=== PATIENT | female | born 1980 | race Caucasian/White ===

== ENCOUNTER 2025-05-24 23:21 | Inpatient (IN) ==
--- NOTE | 2025-05-24 23:34 | Emergency Department Note ---
Impression & Plan Free fluid in pelvis, Cecum perforation ED Provider Note Name: JIGNESH VAZ Age: 44 Sex: Female Arrives Via: Walk-In Informant: Patient ED Provider: Ivan Ware MD Chief Complaint: Abdominal pain Impression: As per impressions above Medical Decision Making: Pleasant 44-year-old female arrives for evaluation of right lower quadrant abdominal pain. Patient is significant tenderness palpation over the right lower quadrant without overt peritonitis. She is hemodynamically stable. Laboratory workup reveals a mildly elevated white blood cell count. CT of the ab pelvis IV contrast reveals loculated fluid collections posterior to right colon/cecum. Discussed with on-call GEN surge team who evaluated patient and feel proceeding with oral contrast CT indicated. A repeat CT was obtained. There is no clear evidence of appendicitis at this point. There continues to be inflammation in the area. Given the free fluid and concern for abscesses patient clearly require hospitalization. Unclear what the etiology of all this is as there is no clear evidence of appendicitis. She was given some IV Mefoxin along with IV fluids. Hospitalist was consulted and general surgery team will follow along. Triage/Nursing Notes reviewed by Me Differential:Appendicitis, ovarian torsion, diverticulitis, ischemia, obstruction, renal colic, pyelonephritis, inflammatory bowel disease amongst many other pathologies considered Vital Signs: reviewed and remarkable for no significant abnormalities Interventions: Cefoxitin 2 g IV, Tylenol IV, normal saline bolus Labs:ED labs Reviewed by me and remarkable for no significant abnormalities Imaging:CT imaging as per radiologist. Abdomen and pelvis with IV contrast and then with p.o. contrast. Inflammatory changes throughout the cecum and loculated fluid collections posteriorly to the cecum with free fluid throughout the area as well as in the pelvis. See their read for full. Consults:Discussed with Mireya of general surgical service who evaluated the patient and agrees does not require emergent or at this time. Suggested proceeding with the oral contrast CT. With these findings admit to hospitalist given no clear surgical indication at this point and will need further workup for what is actually going on. Discussed with hospital service who will further evaluate and manage. Plan: Disposition:Hospitalization. Condition: Good History of Present Illness: 44-year-old female arrives for evaluation of abdominal pain. Patient has been having some nonspecific abdominal pain for the last 1 to 2 days. Over the last several hours though its rapidly worsened to the right lower quadrant. This been associated with a lack of appetite throughout the day as well as some generalized malaise. She denies any falls, trauma, injuries. No medications prior to arrival. She has not had any previous surgeries to her abdomen. She denies any fevers, chills, nausea, vomiting, back pain, urinary symptoms, diarrhea, syncope or other concerning signs or symptoms. She has not had any recent chest pain or shortness of breath. No significant family history of bowel disorders. She herself does not have any history of Crohn's or ulcerative colitis. No history of diverticulitis. Past Medical History: Hypothyroidism Home Medications: Levothyroxine Allergies: No known drug allergies Vitals:Blood Pressure: 138/96, Pulse 69, RR 16, T 36.5C, O2 100% on RA Physical Exam: GENERAL: Patient is uncomfortable appearing and in moderate distress. RESPIRATORY: No dyspnea. Clear to auscultation and equal bilaterally. CARDIOVASCULAR: Regular rate and rhythm.No murmur appreciated. GASTROINTESTINAL: Moderate tenderness palpation of the right lower quadrant quite focal otherwise benign abdomen throughout rest of exam without peritonitis EXTREMITIES: Normal motion all extremities, no cyanosis, no edema. NEUROLOGIC: Alert and oriented. No focal neurologic deficits appreciated SKIN: No rash, no jaundice, no diaphoresis. PSYCH: Appropriate GCS: 15 ED Course: Times/Reassessments: Repeat evaluations patient does feel better after some IV fluids and IV Tylenol. Ivan Ware MD Past Med/Surg History Problem List (Updated 05/25/25 @ 05:41 by Ivan Ware MD) Cecum perforation (Acute) Free fluid in pelvis (Acute) Abdominal pain Social History Smoking Status: Never smoker Preferred Language: Bulgarian Feels Safe at Home: Yes Allergies Allergies Allergy/AdvReac Type Severity Reaction Status Date / Time No Known Allergies Allergy Unverified 05/24/25 23:59 Home Meds Home Medications Medication Instructions Recorded Confirmed levothyroxine 75 mcg tablet 75 mcg PO DAILY 05/25/25 05/25/25 (Synthroid) norethindrone acetate 1 mg-ethinyl 1 tab PO DAILY 05/25/25 05/25/25 estradiol 20 mcg tablet Results & Data (ED) Vital Signs Vital Signs - 24 hr 05/24/25 23:26 05/25/25 00:19 05/25/25 00:20 Temperature 36.5 C Temperature Source Oral Pulse Rate 76 59 L Pulse Rate [Apical] 58 L Respiratory Rate 18 14 Respiratory Effort / Characteristics Non-Labored Spontaneous Non-Labored Spontaneous Respiratory Depth Normal Normal Respiratory Pattern Regular Regular Blood Pressure 145/100 H Blood Pressure [Right Arm] 128/88 Blood Pressure Mean 115 Blood Pressure Mean [Right Arm] 101 Blood Pressure Position Sitting Pulse Oximetry 99 100 Oxygen Delivery Method Room Air Room Air Sepsis Recent Fever Within 48 Hours No Sepsis New/Unexplained Change in Mental Status N/A Sepsis Action Taken by Nursing No Action Required 05/25/25 01:47 05/25/25 03:00 05/25/25 04:30 Temperature Temperature Source Pulse Rate 61 Pulse Rate [Apical] 69 61 Respiratory Rate 16 16 Respiratory Effort / Characteristics Non-Labored Spontaneous Non-Labored Spontaneous Respiratory Depth Normal Normal Respiratory Pattern Regular Regular Blood Pressure Blood Pressure [Right Arm] 138/96 132/92 Blood Pressure Mean Blood Pressure Mean [Right Arm] 110 105 Blood Pressure Position Pulse Oximetry 100 100 Oxygen Delivery Method Room Air Room Air Sepsis Recent Fever Within 48 Hours Sepsis New/Unexplained Change in Mental Status Sepsis Action Taken by Nursing 05/25/25 04:48 Temperature Temperature Source Pulse Rate Pulse Rate [Apical] 65 Respiratory Rate 20 Respiratory Effort / Characteristics Non-Labored Spontaneous Respiratory Depth Normal Respiratory Pattern Regular Blood Pressure Blood Pressure [Right Arm] 124/83 Blood Pressure Mean Blood Pressure Mean [Right Arm] 96 Blood Pressure Position Pulse Oximetry 100 Oxygen Delivery Method Room Air Sepsis Recent Fever Within 48 Hours Sepsis New/Unexplained Change in Mental Status Sepsis Action Taken by Nursing Laboratory Data 05/25/25 04:57 05/25/25 04:57 Lab Results 05/24/25 05/24/25 05/24/25 Range/Units 23:34 23:47 23:52 WBC 12.77 H (4.8-10.8) K/ul RBC 3.86 L (4.20-5.40) M/uL Hgb 12.7 (12.0-16.0) g/dL Hct 37.6 (37.0-47.0) % MCV 97.4 (80.0-100.0) fL MCH 32.9 (25.0-34.0) pg MCHC 33.8 (32.0-36.0) g/dL RDW Std Deviation 46.6 H (36.4-46.3) fL RDW Coeff of Lisa 13.1 (11.5-14.5) % Plt Count 240 (130-400) K/uL MPV 10.1 (9.4-12.4) fL Immature Gran % (Auto) 0.3 % Neut % (Auto) 79.7 % Lymph % (Auto) 10.6 % Morton % (Auto) 8.8 % Eos % (Auto) 0.2 % Baso % (Auto) 0.4 % Neut # (Auto) 10.18 H (1.40-6.50) K/uL Lymph # (Auto) 1.35 (1.20-3.40) K/uL Morton # (Auto) 1.13 H (0.11-0.59) K/uL Eos # (Auto) 0.02 (0.00-0.50) K/uL Baso # (Auto) 0.05 (0.00-0.20) K/uL Immature Gran # (Auto) 0.04 (0.01-0.20) K/uL Sodium 137 (136-145) mmol/L Potassium 3.9 (3.5-5.1) mmol/L Chloride 103 (98-107) mmol/L Carbon Dioxide 27 (21-32) mmol/L Anion Gap 7 (3-11) BUN 9 (6-23) mg/dl Creatinine 0.99 (0.6-1.2) mg/dl Est Cr Clr Drug Dosing 48.8 ml/min eGFR 71.22 BUN/Creatinine Ratio 9.1 L (10-20) Glucose 113 H (70-99(Fasting)) mg/dl Calcium 8.9 (8.6-10.3) mg/dl Total Bilirubin 0.5 (0.2-1.0) mg/dl Direct Bilirubin 0.1 (0-0.2) mg/dl AST 22 (13-39) U/L ALT 13 (7-52) U/L Alkaline Phosphatase 35 (34-104) U/L Total Protein 7.3 (6.0-8.3) gm/dl Albumin 4.2 (3.4-5.0) gm/dl Lipase 15 (11-82) U/L Urine Color Yellow Urine Appearance Clear (Clear) Urine pH 8.5 H (4.5-7.5) Ur Specific [place] 1.013 (1.000-1.030) Urine Protein Negative (Negative) Urine Glucose (UA) Negative (Negative) Urine Ketones Negative (Negative) Urine Blood Negative (Negative) Urine Nitrite Negative (Negative) Urine Bilirubin Negative (Negative) Urine Urobilinogen Negative (Negative) Ur Leukocyte Esterase Negative (Negative) Urine Test Negative (Negative) POC Ur Test NEG (NEG) Urine Comment Administered Medications Discontinued Medications Sodium Chloride (Nss) 1,000 mls @ 999 mls/hr IV .Q1H1M ONE Stop: 05/25/25 00:33 Last Infusion: 05/25/25 01:30 Dose: Infused Documented By: abl Admin: 05/25/25 00:12 Dose: 999 mls/hr Documented By: abl Acetaminophen (Ofirmev) 1,000 mg in 100 mls @ 400 mls/hr IV NOW STA Stop: 05/24/25 23:47 Last Infusion: 05/25/25 00:46 Dose: Infused Documented By: abl Admin: 05/25/25 00:12 Dose: 400 mls/hr Documented By: abl Cefoxitin Sodium (Mefoxin) 2,000 mg in 60 mls @ 100 mls/hr IV NOW STA Stop: 05/25/25 02:15 Last Infusion: 05/25/25 02:30 Dose: Infused Documented By: abl Admin: 05/25/25 01:50 Dose: 100 mls/hr Documented By: abl Sodium Chloride (Nss) 1,000 mls @ 999 mls/hr IV .Q1H1M ONE Stop: 05/25/25 02:41 Last Infusion: 05/25/25 03:00 Dose: Infused Documented By: abl Admin: 05/25/25 01:51 Dose: 999 mls/hr Documented By: abl Ioversol (Optiray 320 100ml) 100 ml IV ONCE ONE Stop: 05/25/25 00:08 Last Admin: 05/25/25 00:07 Dose: 93 ml Documented By: KWAME Imaging Data Radiologist's Impression: Abdomen/Pelvis CT 05/24/25 23:33 EXAM: CT abd pelvis IV con only CLINICAL HISTORY: RLQ pain, TTP over 24 hrs TECHNIQUE: Contiguous axial images were obtained from the level of the diaphragm to the pubic symphysis with intravenous contrast. Coronal and sagittal reconstructions were likewise performed and indicated to increase the sensitivity for detecting clinically relevant pathology. If IV contrast material had not been administered, the likelihood of detecting abnormalities relevant to the patient's condition would have been substantially decreased. CT scan was performed according to ALARA (as low as reasonably achievable). COMPARISON: None. FINDINGS: The visualized lung bases are clear. The liver is normal in size and attenuation. No focal liver lesions are seen. There is no intra or extrahepatic biliary ductal dilatation. Hepatic vasculature is patent. Status post-cholecystectomy. The spleen, pancreas, and adrenal glands are unremarkable. The kidneys are normal in size and attenuation. There is no hydronephrosis or perinephric fat stranding. No renal calculi or renal masses are identified. The ureters are normal in caliber and no ureteral calculi are seen. The bladder is normal in contour. Pelvic viscera are unremarkable. Mild inflammatory changes is noted involving posteroinferior aspect of base of cecum. Moderate inflammatory thickening with fat stranding is noted involving right iliac fossa. Few loculated fluid collection with subtle peripheral enhancement is noted involving posteroinferior aspect of cecum- possibility of infective collection. Appendix appears normal. No obvious appendicitis Mild ascites noted involving lower abdomen and pelvis. Multiple small uncomplicated sigmoid colonic diverticulosis Abdominal and pelvic vasculature is patent. No aggressive appearing osseous lesions are identified. IMPRESSION: Mild inflammatory changes is noted involving posteroinferior aspect of base of cecum. Moderate inflammatory thickening with fat stranding is noted involving right iliac fossa. Few loculated fluid collection with subtle peripheral enhancement is noted involving posteroinferior aspect of cecum- possibility of infective collection.- post oral contrast evaluation suggested. Appendix appears normal. No obvious appendicitis Mild ascites noted involving lower abdomen and pelvis. Multiple small uncomplicated sigmoid colonic diverticulosis Electronically signed by Jeff Duran 05-25-2025 01:31 AM Abdomen/Pelvis CT 05/25/25 01:41 EXAM: CT abd pelvis oral con only CLINICAL HISTORY: abscess, right posterior colon TECHNIQUE: Contiguous axial images were obtained from the level of the diaphragm to the pubic symphysis with oral contrast. Coronal and sagittal reconstructions were likewise performed and indicated to increase the sensitivity for detecting clinically relevant pathology. CT scan was performed according to ALARA (as low as reasonably achievable). COMPARISON: 23:12:00 DUST PULLER. FINDINGS: The visualized lung bases are clear. The liver is normal in size and attenuation. No focal liver lesions are seen. There is no intra or extrahepatic biliary ductal dilatation. Hepatic vasculature is patent. The gallbladder is surgically absent. The spleen, pancreas, and adrenal glands are unremarkable. The kidneys are normal in size and attenuation. There is no hydronephrosis or perinephric fat stranding. No renal calculi or renal masses are identified. The ureters are normal in caliber and no ureteral calculi are seen. The bladder is normal in contour. Pelvic viscera are unremarkable. No imaging evidence of appendicitis. Abdominal and pelvic vasculature is patent. No adenopathy are seen. No aggressive appearing osseous lesions are identified. Moderate concentric inflammatory wall thickening is noted involving cecum with maximum wall thickness measures about 11 mm. Mild to moderate adjacent fat stranding and mild free fluid is seen. IMPRESSION: 1. Moderate concentric inflammatory wall thickening is noted involving cecum with maximum wall thickness measures about 11 mm.Mild to moderate adjacent fat stranding and mild free fluid is seen..-stable. 2. No changes of appendicitis. Electronically signed by Jeff Duran 05-25-2025 04:31 AM Discharge Plan Visit Data Chief Complaint: Abdominal Pain Stated Complaint: RLQ ABD PAIN PAST 24 HRS, CONCERN ABOUT APPENDIX ED Provider: Ivan Ware Discharge Problem: Free fluid in pelvis, Cecum perforation Patient Disposition: Home - Self-Care Condition: Fair Discharge Instructions Interventions: ED Discharge Assessment Last Done: 05/25/25 05:12
[2025-05-25] LABS: Appearance Urine Clear (Clear); Glucose Urine UA Negative (Negative)
[2025-05-25 00:02] LABS: Hematocrit (blood only) 37.6 % (37.0-47.0); Hemoglobin 12.7 g/dL (12.0-16.0); Immature Granulocytes # (auto) 0.04 K/uL (0.01-0.20); Immature Granulocytes % (auto) 0.3 %; Mean Corpuscular Hemoglobin 32.9 pg (25.0-34.0); Mean Corpuscular Volume 97.4 fL (80.0-100.0); Platelet Count 240 K/uL (130-400); RDW Standard Deviation 46.6 fL (36.4-46.3); Red Blood Count 3.86 M/uL (4.20-5.40); White Blood Count 12.77 K/ul (4.8-10.8)
[2025-05-25] MEDS: OPTIRAY 320 100ml IV ONE (00:07)
[2025-05-25] MEDS: SODIUM CHLORIDE 0.9% 1,000 ML IV ONE ×3 (00:12→06:07)
[2025-05-25] MEDS: ACETAMINOPHEN 1,000 MG/100 ML VIAL IV STA (00:12)
[2025-05-25 00:19] LABS: Alanine Aminotransferase 13.0 U/L (7-52); Albumin Level 4.2 gm/dl (3.4-5.0); Alkaline Phosphatase 35.0 U/L (34-104); Anion Gap 7.0 (3-11); Bilirubin,Total 0.5 mg/dl (0.2-1.0); Blood Urea Nitrogen 9.0 mg/dl (6-23); Calcium 8.9 mg/dl (8.6-10.3); Carbon Dioxide 27.0 mmol/L (21-32); Chloride 103.0 mmol/L (98-107); Creatinine Clr Calc Pharmacy 48.8 ml/min; Glucose 113.0 mg/dl (70-99(Fasting)); Lipase 15.0 U/L (11-82); Potassium 3.9 mmol/L (3.5-5.1); Sodium 137.0 mmol/L (136-145); Total Protein 7.3 gm/dl (6.0-8.3)
--- NOTE | 2025-05-25 01:32 | CT Scan Report ---
EXAM: CT abd pelvis IV con only CLINICAL HISTORY: RLQ pain, TTP over 24 hrs TECHNIQUE: Contiguous axial images were obtained from the level of the diaphragm to the pubic symphysis with intravenous contrast. Coronal and sagittal reconstructions were likewise performed and indicated to increase the sensitivity for detecting clinically relevant pathology. If IV contrast material had not been administered, the likelihood of detecting abnormalities relevant to the patient's condition would have been substantially decreased. CT scan was performed according to ALARA (as low as reasonably achievable). COMPARISON: None. FINDINGS: The visualized lung bases are clear. The liver is normal in size and attenuation. No focal liver lesions are seen. There is no intra or extrahepatic biliary ductal dilatation. Hepatic vasculature is patent. Status post-cholecystectomy. The spleen, pancreas, and adrenal glands are unremarkable. The kidneys are normal in size and attenuation. There is no hydronephrosis or perinephric fat stranding. No renal calculi or renal masses are identified. The ureters are normal in caliber and no ureteral calculi are seen. The bladder is normal in contour. Pelvic viscera are unremarkable. Mild inflammatory changes is noted involving posteroinferior aspect of base of cecum. Moderate inflammatory thickening with fat stranding is noted involving right iliac fossa. Few loculated fluid collection with subtle peripheral enhancement is noted involving posteroinferior aspect of cecum- possibility of infective collection. Appendix appears normal. No obvious appendicitis Mild ascites noted involving lower abdomen and pelvis. Multiple small uncomplicated sigmoid colonic diverticulosis Abdominal and pelvic vasculature is patent. No aggressive appearing osseous lesions are identified. IMPRESSION: Mild inflammatory changes is noted involving posteroinferior aspect of base of cecum. Moderate inflammatory thickening with fat stranding is noted involving right iliac fossa. Few loculated fluid collection with subtle peripheral enhancement is noted involving posteroinferior aspect of cecum- possibility of infective collection.- post oral contrast evaluation suggested. Appendix appears normal. No obvious appendicitis Mild ascites noted involving lower abdomen and pelvis. Multiple small uncomplicated sigmoid colonic diverticulosis Electronically signed by Jeff Duran 05-25-2025 01:31 AM
--- NOTE | 2025-05-25 01:47 | Surgery Consultation ---
Date of Consultation May 25, 2025 Assessment & Plan (1) Abdominal pain: Patient is 44-year-old female who presented to the emergency room with complaints of roughly 2-3 days of abdominal pain. The patient states that the pain started out of nowhere and has progressively gotten worse over the course of a few days. The pain has been in her RLQ and she denies any associated nausea or vomiting. Work up in the emergency room she was found to have a slightly elevated WBC at 12.[address] imaging with concerns of inflammatory changes involving the cecum with fat stranding and mild free fluid/possible fluid collection with normal appearing appendix. The patient was seen and evaluated by the surgical service this morning. She is resting comfortably in bed, VSS, and on exam is tender in the RLQ however no overt signs of peritonitis. From a surgical standpoint recommend the following : -Keep patient NPO, IV fluid hydration, and initial broad spectrum antibiotics with Zosyn -Pain control and antiemetics as needed -Trend WBC and temps -Patient will be admitted to the medical service, surgery will follow and will discuss patient's cause with attending surgeon, Dr. Rosario, and additional surgical recommendations to follow. Supervising Physician Co-Signing Physician Notes Keep n.p.o. for today IV antibiotics No plans for any surgical intervention Will follow History of Present Illness Reason for Consultation: abdominal pain History of Present Illness Patient is 44-year-old female who presented to the emergency room with complaints of roughly 2-3 days of abdominal pain. The patient states that the pain started out of nowhere and has progressively gotten worse over the last few days. States the pain has been located in her right lower quadrant and it does not seem to radiate. She denies any associated nausea or vomiting. She does endorse chills however no fevers. The patient denies any history of inflammatory bowel disease and denies any previous abdominal surgeries. She was worked up in the emergency room and was found to have a slightly elevated WBC at 12.[address] imaging with IV contrast was concerning for inflammatory changes in the cecum along with loculated fluid in the posteroinferior aspect of the cecum with appendix appearing normal. The patient was then taken for a repeat CT with oral contrast again noting inflammatory changes involving the cecum with fat stranding and mild free fluid. Due to these findings the general surgery team was consulted for further evaluation of the patient. The patient was seen and evaluated early this morning in the emergency department. She is resting comfortably in bed, VSS, and is not toxic appearing. She is moderately tender in the RLQ on exam however no signs of overt peritonitis. Allergies Allergy/AdvReac Type Severity Reaction Status Date / Time No Known Allergies Allergy Unverified 05/24/25 23:59 Home Medications Medication Instructions Recorded Confirmed Type levothyroxine 75 mcg tablet 75 mcg PO DAILY 05/25/25 05/25/25 History (Synthroid) norethindrone acetate 1 mg-ethinyl 1 tab PO DAILY 05/25/25 05/25/25 History estradiol 20 mcg tablet Patient History Social History Smoking Status: Never smoker Hx Alcohol Use: Yes Hx Substance Use: No Preferred Language: Ukrainian Communication Ability: Effective Data Base Design Analyst Required: No Beliefs That Will Affect Care: None Current Living Situation: Spouse Other Information That Helps Us Care for You: No Feels Safe at Home: Yes Safety Concerns: Feels Safe At This Time Assistive Devices: None Review of Systems Constitutional: + chills and + body aches; no fever Respiratory: no cough and no chest congestion Cardiovascular: no chest pain, no palpitations and no syncope Gastrointestinal: + abdominal pain; no nausea and no vomit ing Genitourinary: no difficulty urinating and no hematuria Physical Exam Constitutional: WD/WN, vitals as above Respiratory: normal respiratory effort, lungs clear to auscultation Cardiovascular: Rate/Rhythm: regular rate Gastrointestinal (Abdomen): Abdomen soft, nondistended, +moderately tender in the RLQ No signs of peritonitis Skin: no rashes, warm and dry Results & Data Vital Signs (Past 12 Hours) Vital Signs Temp Pulse Pulse Resp BP BP Pulse Ox 05/25/25 00:20 59 L 05/25/25 00:19 58 L 14 128/88 100 05/24/25 23:26 36.5 C 76 18 145/100 H 99 O2 Del Method 05/25/25 00:20 05/25/25 00:19 Room Air 05/24/25 23:26 Room Air Diagnostic Findings EXAM: CT abd pelvis IV con only CLINICAL HISTORY: RLQ pain, TTP over 24 hrs TECHNIQUE: Contiguous axial images were obtained from the level of the diaphragm to the pubic symphysis with intravenous contrast. Coronal and sagittal reconstructions were likewise performed and indicated to increase the sensitivity for detecting clinically relevant pathology. If IV contrast material had not been administered, the likelihood of detecting abnormalities relevant to the patient's condition would have been substantially decreased. CT scan was performed according to ALARA (as low as reasonably achievable). COMPARISON: None. FINDINGS: The visualized lung bases are clear. The liver is normal in size and attenuation. No focal liver lesions are seen. There is no intra or extrahepatic biliary ductal dilatation. Hepatic vasculature is patent. Status post-cholecystectomy. The spleen, pancreas, and adrenal glands are unremarkable. The kidneys are normal in size and attenuation. There is no hydronephrosis or perinephric fat stranding. No renal calculi or renal masses are identified. The ureters are normal in caliber and no ureteral calculi are seen. The bladder is normal in contour. Pelvic viscera are unremarkable. Mild inflammatory changes is noted involving posteroinferior aspect of base of cecum. Moderate inflammatory thickening with fat stranding is noted involving right iliac fossa. Few loculated fluid collection with subtle peripheral enhancement is noted involving posteroinferior aspect of cecum- possibility of infective collection. Appendix appears normal. No obvious appendicitis Mild ascites noted involving lower abdomen and pelvis. Multiple small uncomplicated sigmoid colonic diverticulosis Abdominal and pelvic vasculature is patent. No aggressive appearing osseous lesions are identified. IMPRESSION: Mild inflammatory changes is noted involving posteroinferior aspect of base of cecum. Moderate inflammatory thickening with fat stranding is noted involving right iliac fossa. Few loculated fluid collection with subtle peripheral enhancement is noted involving posteroinferior aspect of cecum- possibility of infective collection.- post oral contrast evaluation suggested. Appendix appears normal. No obvious appendicitis Mild ascites noted involving lower abdomen and pelvis. Multiple small uncomplicated sigmoid colonic diverticulosis EXAM: CT abd pelvis oral con only CLINICAL HISTORY: abscess, right posterior colon TECHNIQUE: Contiguous axial images were obtained from the level of the diaphragm to the pubic symphysis with oral contrast. Coronal and sagittal reconstructions were likewise performed and indicated to increase the sensitivity for detecting clinically relevant pathology. CT scan was performed according to ALARA (as low as reasonably achievable). COMPARISON: 23:12:00 COUNTERPERSON. FINDINGS: The visualized lung bases are clear. The liver is normal in size and attenuation. No focal liver lesions are seen. There is no intra or extrahepatic biliary ductal dilatation. Hepatic vasculature is patent. The gallbladder is surgically absent. The spleen, pancreas, and adrenal glands are unremarkable. The kidneys are normal in size and attenuation. There is no hydronephrosis or perinephric fat stranding. No renal calculi or renal masses are identified. The ureters are normal in caliber and no ureteral calculi are seen. The bladder is normal in contour. Pelvic viscera are unremarkable. No imaging evidence of appendicitis. Abdominal and pelvic vasculature is patent. No adenopathy are seen. No aggressive appearing osseous lesions are identified. Moderate concentric inflammatory wall thickening is noted involving cecum with maximum wall thickness measures about 11 mm. Mild to moderate adjacent fat stranding and mild free fluid is seen. IMPRESSION: 1. Moderate concentric inflammatory wall thickening is noted involving cecum with maximum wall thickness measures about 11 mm.Mild to moderate adjacent fat stranding and mild free fluid is seen..-stable. 2. No changes of appendicitis. PG Care Time/CCT Total # of Minutes Spent Total Time Spent with Patient: Total time spent is greater than 50% in coordination of care (as documented) at patient's floor/unit and/or counseling patient: [place] [address] Office/OBS Consult Lvl 1 Patient Type New Medical Decision Making Straight Forward Diagnoses Abdominal pain R10.9
[2025-05-25] MEDS: cefOXitin 2,000 MG/60 ML BAG IV STA (01:50)
--- NOTE | 2025-05-25 04:31 | CT Scan Report ---
EXAM: CT abd pelvis oral con only CLINICAL HISTORY: abscess, right posterior colon TECHNIQUE: Contiguous axial images were obtained from the level of the diaphragm to the pubic symphysis with oral contrast. Coronal and sagittal reconstructions were likewise performed and indicated to increase the sensitivity for detecting clinically relevant pathology. CT scan was performed according to ALARA (as low as reasonably achievable). 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 FINDINGS: The visualized lung bases are clear. The liver is normal in size and attenuation. No focal liver lesions are seen. There is no intra or extrahepatic biliary ductal dilatation. Hepatic vasculature is patent. The gallbladder is surgically absent. The spleen, pancreas, and adrenal glands are unremarkable. The kidneys are normal in size and attenuation. There is no hydronephrosis or perinephric fat stranding. No renal calculi or renal masses are identified. The ureters are normal in caliber and no ureteral calculi are seen. The bladder is normal in contour. Pelvic viscera are unremarkable. No imaging evidence of appendicitis. Abdominal and pelvic vasculature is patent. No adenopathy are seen. No aggressive appearing osseous lesions are identified. Moderate concentric inflammatory wall thickening is noted involving cecum with maximum wall thickness measures about 11 mm. Mild to moderate adjacent fat stranding and mild free fluid is seen. IMPRESSION: 1. Moderate concentric inflammatory wall thickening is noted involving cecum with maximum wall thickness measures about 11 mm.Mild to moderate adjacent fat stranding and mild free fluid is seen..-stable. 2. No changes of appendicitis. Electronically signed by Jeff Duran 05-25-2025 04:31 AM
--- NOTE | 2025-05-25 04:47 | History & Physical Report ---
Date of Service May 25, 2025 Assessment & Plan (1) Acute cecitis: Plan: Assessment and plan below following discussion of case with ED provider and reviewing patient history/pertinent normal/abnormal diagnostic test results. Acute cecitis No sepsis for now hypothyroidism, outpatient TSH from a few months ago elevated at 5.8 Hyperglycemia rule out DM Admit to [facility] General Surgery consult re: acute cecitis (Patient already seen at the ER by MICHEL. N.p.o. status and IV Zosyn recommended by provider.) Check TSH, hemoglobin A1c with a.m. labs DVT prophylaxis. SCDs Full code Text document was generated using LessThan3 recognition software. It may contain grammatical or spelling errors. Kindly contact undersigned for clarification of any documentation item in question. History of Present Illness Chief Complaint: RLQ pain Primary Care Provider: Dr. Guerra History obtained from patient and records. Medical history significant for hyperlipidemia, hypothyroidism. 2 days history of achy RLQ pain without other symptoms. Somewhat worse with motion. No fever, no chills, no nausea, no vomiting, no hematuria. No prior episodes. No unusual weight loss. IV Mefoxin administered at the ER. Medical History as above No prior colonoscopies. Surgical History : Hand surgery, cholecystectomy, right knee surgery Family History : Colon cancer, heart disease, ovarian cancer, stroke, endometriosis, throat cancer Personal/Social history : Non-smoker, occasional EtOH intake, [employer] employee Allergies Allergy/AdvReac Type Severity Reaction Status Date / Time No Known Allergies Allergy Unverified 05/24/25 23:59 Home Medications Medication Instructions Recorded Confirmed Type levothyroxine 75 mcg tablet 75 mcg PO DAILY 05/25/25 05/25/25 History (Synthroid) norethindrone acetate 1 mg-ethinyl 1 tab PO DAILY 05/25/25 05/25/25 History estradiol 20 mcg tablet Past Med/Surg History Problem List (Updated 05/25/25 @ 05:55 by David Butts MD) Acute cecitis Cecum perforation (Acute) Free fluid in pelvis (Acute) Abdominal pain Social History Smoking Status: Never smoker Preferred Language: Greek Feels Safe at Home: Yes Review of Systems Review of Systems: As per HPI, all other systems reviewed and negative Physical Exam Physical Exam: GENERAL: Comfortable, pleasant, underweight, no respiratory distress SKIN: Normal color, warm HEENT: Bespectacled, pink palpebral conjunctivae, no ptosis, dry buccal mucosa NECK : Supple, no tenderness CHEST : CTA, no tenderness HEART : RRR, no obvious murmurs ABDOMEN: Some distention, RLQ tenderness EXTREMITIES : No LE swelling/tenderness, palpable pulses, no other conspicuous deformities noted NEUROLOGIC : Coherent, no facial asymmetry, no other gross focality Results & Data Results & Data Vital Signs (Past 12 Hours) Vital Signs Temp Pulse Pulse Resp BP BP Pulse Ox 05/25/25 04:30 61 05/25/25 03:00 61 16 132/92 100 05/25/25 01:47 69 16 138/96 100 05/25/25 00:20 59 L 05/25/25 00:19 58 L 14 128/88 100 05/24/25 23: 36.5 C 76 18 145/100 H 99 O2 Del Method 05/25/25 04:30 05/25/25 03:00 Room Air 05/25/25 01:47 Room Air 05/25/25 00:20 05/25/25 00:19 Room Air 05/24/25 23:26 Room Air Laboratory Results Laboratory Results WBC 12.77 K/ul (4.8-10.8) H 05/24/25 23:34 RBC 3.86 M/uL (4.20-5.40) L 05/24/25 23:34 Hgb 12.7 g/dL (12.0-16.0) 05/24/25 23:34 Hct 37.6 % (37.0-47.0) 05/24/25 23:34 MCV 97.4 fL (80.0-100.0) 05/24/25 23:34 MCH 32.9 pg (25.0-34.0) 05/24/25 23:34 MCHC 33.8 g/dL (32.0-36.0) 05/24/25 23:34 RDW Std Deviation 46.6 fL (36.4-46.3) H 05/24/25 23:34 RDW Coeff of Lisa 13.1 % (11.5-14.5) 05/24/25 23:34 Plt Count 240 K/uL (130-400) 05/24/25 23:34 MPV 10.1 fL (9.4-12.4) 05/24/25 23:34 Immature Gran % (Auto) 0.3 % 05/24/25 23:34 Neut % (Auto) 79.7 % 05/24/25 23:34 Lymph % (Auto) 10.6 % 05/24/25 23:34 Sunflower % (Auto) 8.8 % 05/24/25 23:34 Eos % (Auto) 0.2 % 05/24/25 23:34 Baso % (Auto) 0.4 % 05/24/25 23:34 Neut # (Auto) 10.18 K/uL (1.40-6.50) H 05/24/25 23:34 Lymph # (Auto) 1.35 K/uL (1.20-3.40) 05/24/25 23:34 Sunflower # (Auto) 1.13 K/uL (0.11-0.59) H 05/24/25 23:34 Eos # (Auto) 0.02 K/uL (0.00-0.50) 05/24/25 23:34 Baso # (Auto) 0.05 K/uL (0.00-0.20) 05/24/25 23:34 Immature Gran # (Auto) 0.04 K/uL (0.01-0.20) 05/24/25 23:34 Sodium 137 mmol/L (136-145) 05/24/25 23:34 Potassium 3.9 mmol/L (3.5-5.1) 05/24/25 23:34 Chloride 103 mmol/L (98-107) 05/24/25 23:34 Carbon Dioxide 27 mmol/L (21-32) 05/24/25 23:34 Anion Gap 7 (3-11) 05/24/25 23:34 BUN 9 mg/dl (6-23) 05/24/25 23:34 Creatinine 0.99 mg/dl (0.6-1.2) 05/24/25 23:34 Est Cr Clr Drug Dosing 48.8 ml/min 05/24/25 23:34 eGFR 71.22 05/24/25 23:34 BUN/Creatinine Ratio 9.1 (10-20) L 05/24/25 23:34 Glucose 113 mg/dl (70-99(Fasting)) H 05/24/25 23:34 Calcium 8.9 mg/dl (8.6-10.3) 05/24/25 23:34 Total Bilirubin 0.5 mg/dl (0.2-1.0) 05/24/25 23:34 Direct Bilirubin 0.1 mg/dl (0-0.2) 05/24/25 23:34 AST 22 U/L (13-39) 05/24/25 23:34 ALT 13 U/L (7-52) 05/24/25 23:34 Alkaline Phosphatase 35 U/L (34-104) 05/24/25 23:34 Total Protein 7.3 gm/dl (6.0-8.3) 05/24/25 23:34 Albumin 4.2 gm/dl (3.4-5.0) 05/24/25 23:34 Lipase 15 U/L (11-82) 05/24/25 23:34 Urine Color Yellow 05/24/25 23:47 Urine Appearance Clear (Clear) 05/24/25 23:47 Urine pH 8.5 (4.5-7.5) H 05/24/25 23:47 Ur Specific [place] 1.013 (1.000-1.030) 05/24/25 23:47 Urine Protein Negative (Negative) 05/24/25 23:47 Urine Glucose (UA) Negative (Negative) 05/24/25 23:47 Urine Ketones Negative (Negative) 05/24/25 23:47 Urine Blood Negative (Negative) 05/24/25 23:47 Urine Nitrite Negative (Negative) 05/24/25 23:47 Urine Bilirubin Negative (Negative) 05/24/25 23:47 Urine Urobilinogen Negative (Negative) 05/24/25 23:47 Ur Leukocyte Esterase Negative (Negative) 05/24/25 23:47 Urine Test Negative (Negative) 05/24/25 23:47 POC Ur Test NEG (NEG) 05/24/25 23:52 Urine Comment 05/24/25 23:47 Impressions Abdomen/Pelvis CT 05/25/25 01:41 EXAM: CT abd pelvis oral con only CLINICAL HISTORY: abscess, right posterior colon TECHNIQUE: Contiguous axial images were obtained from the level of the diaphragm to the pubic symphysis with oral contrast. Coronal and sagittal reconstructions were likewise performed and indicated to increase the sensitivity for detecting clinically relevant pathology. CT scan was performed according to BETO (as low as reasonably achievable). 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 FINDINGS: The visualized lung bases are clear. The liver is normal in size and attenuation. No focal liver lesions are seen. There is no intra or extrahepatic biliary ductal dilatation. Hepatic vasculature is patent. The gallbladder is surgically absent. The spleen, pancreas, and adrenal glands are unremarkable. The kidneys are normal in size and attenuation. There is no hydronephrosis or perinephric fat stranding. No renal calculi or renal masses are identified. The ureters are normal in caliber and no ureteral calculi are seen. The bladder is normal in contour. Pelvic viscera are unremarkable. No imaging evidence of appendicitis. Abdominal and pelvic vasculature is patent. No adenopathy are seen. No aggressive appearing osseous lesions are identified. Moderate concentric inflammatory wall thickening is noted involving cecum with maximum wall thickness measures about 11 mm. Mild to moderate adjacent fat stranding and mild free fluid is seen. IMPRESSION: 1. Moderate concentric inflammatory wall thickening is noted involving cecum with maximum wall thickness measures about 11 mm.Mild to moderate adjacent fat stranding and mild free fluid is seen..-stable. 2. No changes of appendicitis. Electronically signed by Jeff Duran 05-25-2025 04:31 AM
[2025-05-25] MEDS ORDERED: PROMETHAZINE 6.25 MG/50.25 ML BAG IV PRN (04:52)
[2025-05-25 05:13] LABS: Hematocrit (blood only) 35.6 % (37.0-47.0); Hemoglobin 11.9 g/dL (12.0-16.0); Immature Granulocytes # (auto) 0.02 K/uL (0.01-0.20); Immature Granulocytes % (auto) 0.2 %; Mean Corpuscular Hemoglobin 33.0 pg (25.0-34.0); Mean Corpuscular Volume 98.6 fL (80.0-100.0); Platelet Count 211 K/uL (130-400); RDW Standard Deviation 47.2 fL (36.4-46.3); Red Blood Count 3.61 M/uL (4.20-5.40); White Blood Count 11.01 K/ul (4.8-10.8)
[2025-05-25 05:30] LABS: Anion Gap 4.0 (3-11); Blood Urea Nitrogen 7.0 mg/dl (6-23); Calcium 7.9 mg/dl (8.6-10.3); Carbon Dioxide 26.0 mmol/L (21-32); Chloride 107.0 mmol/L (98-107); Creatinine Clr Calc Pharmacy 52.5 ml/min; Glucose 83.0 mg/dl (70-99(Fasting)); Potassium 4.1 mmol/L (3.5-5.1); Sodium 137.0 mmol/L (136-145)
[2025-05-25 05:46] LABS: Thyroid Stimulating Hormone 3.416 uIu/ml (0.300-4.500)
[2025-05-25 07:24] LABS: Hemoglobin A1C 5.2 % (4.5-5.6)
[2025-05-25] MEDS: PIPERACILLIN/TAZOBACTAM 4.5 GM/100 ML BAG IV SCH (09:36)
[2025-05-25] MEDS: ACETAMINOPHEN 325 MG TAB PO PRN (13:44)
[2025-05-25] MEDS: KETOROLAC TROMETHAMINE 15 MG/ML VIAL IV PRN (23:45)
[2025-05-26 07:26] VITALS: BP 101/69; RESP 14; TEMP 97.5; O2SAT 99
[2025-05-26 07:27] LABS: Hematocrit (blood only) 37.8 % (37.0-47.0); Hemoglobin 12.7 g/dL (12.0-16.0); Mean Corpuscular Hemoglobin 33.3 pg (25.0-34.0); Mean Corpuscular Volume 99.2 fL (80.0-100.0); Platelet Count 209 K/uL (130-400); RDW Standard Deviation 48.8 fL (36.4-46.3); Red Blood Count 3.81 M/uL (4.20-5.40); White Blood Count 12.46 K/ul (4.8-10.8)
[2025-05-26 08:08] LABS: Anion Gap 11.0 (3-11); Blood Urea Nitrogen 11.0 mg/dl (6-23); Calcium 8.0 mg/dl (8.6-10.3); Carbon Dioxide 18.0 mmol/L (21-32); Chloride 107.0 mmol/L (98-107); Creatinine Clr Calc Pharmacy 52.6 ml/min; Glucose 62.0 mg/dl (70-99(Fasting)); Magnesium 2.2 mg/dl (1.7-2.4); Potassium 3.6 mmol/L (3.5-5.1); Sodium 136.0 mmol/L (136-145)
--- NOTE | 2025-05-26 11:36 | Surgery Progress Note ---
Date of Service May 26, 2025 Assessment & Plan (1) Acute cecitis: Plan: Trial clear liquids She still has some tenderness on exam, although subjectively she feels much better She tolerates her clear liquids, she can have a low fiber diet She is anxious to be discharged today, I do think another day of IV antibiotics would be prudent She will need to go home on 2 weeks of oral antibiotics She will need a colonoscopy at some point down the road when this is resolved Surgery will follow Admission and Anticipated Discharge Date Admission Date: May 25, 2025 Subjective Patient seen and examined. States her pain is improved. Denies any nausea or vomiting. She is having bowel movements. Review of Systems Constitutional: no fever and no chills Eyes: no blind spots and no corrective lenses Respiratory: no cough and no dyspnea Cardiovascular: no chest pain and no dyspnea on exertion Gastrointestinal: + abdominal pain; no nausea and no vomit ing Genitourinary: no dysuria and no urinary hesitancy Integumentary: no acne and no changing lesions Neurologic: no headache(s) and no confusion Hematologic / Lymphatic: no easy bleeding and no easy bruising Physical Exam Constitutional: WD/WN, vitals as above Eyes: PERRL, conjunctivae normal, anicteric sclerae Respiratory: normal respiratory effort, lungs clear to auscultation Cardiovascular: RRR, no murmur, no edema Gastrointestinal (Abdomen): Soft, tender to palpation in the right lower quadrant, no rebound or guarding Skin: no rashes, warm and dry Psychiatric: A+Ox3, euthymic affect Results & Data Vital Signs (Past 12 Hours) Vital Signs Temp Pulse Resp BP Pulse Ox O2 Del Method 05/26/25 07:25 36.4 C L 59 L 14 101/69 99 Room Air PG Care Time/CCT Total # of Minutes Spent Total Time Spent with Patient: Total time spent is greater than 50% in coordination of care (as documented) at patient's floor/unit and/or counseling patient: Coding Level of Care Code 87093 SUB INP/OBS CARE 07/24MIN Diagnoses Acute cecitis K52.9
--- NOTE | 2025-05-26 16:18 | Discharge Summary ---
Discharge Summary Date of Service May 26, 2025 Principal Dx & Hospital Course #1 = Principal Diagnosis (1) Acute cecitis: (2) Hypothyroid: Plan Patient 44-year-old female presented to the emergency room with acute abdominal pain. Imaging revealed acute inflammation of the cecum with some fat stranding and fluid. Patient was evaluated by surgery who did not feel that there was any immediate surgical intervention. Patient was admitted to the hospital. She made NPO. She is given IV fluids and broad-spectrum IV antibiotics. By the following day she had significant improvement of her symptoms. She was continued on IV fluids and antibiotics. On the day of discharge her abdominal pain had significantly decreased. We slowly advanced her diet throughout the day. She tolerated this well. She was actually transition to Augmentin here in the hospital on the day of discharge due to the fact that her IV access was lost and she did not want to be re-stuck for another IV. She is very motivated to get home. Surgery recommended a 14-day course of antibiotics. If she tolerates her evening meal anticipate she will be discharged home. She will follow-up with her PCP and recommend outpatient GI consultation for colonoscopy consideration. Notes For Next Care Provider Consider outpatient GI consultation for colonoscopy Medication Changes From Visit Augmentin Admission HPI Per Admitting Provider History obtained from patient and records. Medical history significant for hyperlipidemia, hypothyroidism. 2 days history of achy RLQ pain without other symptoms. Somewhat worse with motion. No fever, no chills, no nausea, no vomiting, no hematuria. No prior episodes. No unusual weight loss. IV Mefoxin administered at the ER. Medical History as above No prior colonoscopies. Surgical History : Hand surgery, cholecystectomy, right knee surgery Family History : Colon cancer, heart disease, ovarian cancer, stroke, endometriosis, throat cancer Personal/Social history : Non-smoker, occasional EtOH intake, [employer] employee Admission Exam Per Admitting Provider See H&P Discharge Exam Constitutional: Alert, nontoxic HEENT: Mucous membranes moist. Lungs: Clear to auscultation, decreased, no wheezes rales or rhonchi CV: S1-S2, regular Abdomen: Soft, not distended, right lower quadrant tenderness but no guarding or rigidity, improved Extremities: No significant edema Neuro: No focal deficits Psych: Cooperative, normal mood Updated Medication List Medication Instructions Recorded Confirmed Type levothyroxine 75 mcg tablet 75 mcg PO DAILY 05/25/25 05/25/25 History (Synthroid) norethindrone acetate 1 mg-ethinyl 1 tab PO DAILY 05/25/25 05/25/25 History estradiol 20 mcg tablet amoxicillin 875 mg-potassium 1 tab PO BID 6 days #12 tabs 05/26/25 Rx clavulanate 125 mg tablet amoxicillin 875 mg-potassium 1 tab PO BIDM #14 tabs 05/26/25 Rx clavulanate 125 mg tablet Hospital Stay Data Consultations 05/25/25 02:00 ED Decision to Admit Stat 05/25/25 04:47 Consult General Surgery Routine ED Decision to Admit Stat Diagnostic Imagining Performed 05/24/25 23:33 CT abd pelvis IV con only Stat 05/25/25 01:41 CT abd pelvis oral con only Stat Reviewed imaging, laboratory and diagnostic studies. Pertinent findings as below. WBCs 12.4 Hemoglobin 12.7 Platelets of 209 Electrolytes stable Creatinine 0.[address] of the abdomen pelvis done on 05/25/2025 showed concentric inflammation of the cecum, no evidence of appendicitis Pending Results Patient Have Any Pending Studies at Discharge: No Discharge Instructions Given to Patient (Per Discharging Provider) The surgeon is recommending 14 days of antibiotics. I sent in another prescription for an additional 7 days of Augmentin Total Time Total Time Spent Total Time Spent (In Minutes): 26
[2025-05-26] MEDS: AMOXICILLIN/CLAVULANATE 875 MG TAB PO SCH (16:36)
[2025-05-26 16:40] VITALS: PULSE 70
== END 2025-05-26 17:13 | disposition home or self-care (01) | DRG 392 ==
LOC: ED 23:21 → SUATTDRO 05-25 04:49 → 3N 05-25 04:49